=== PATIENT | male | born 2000 | race African-American/Black ===

== ENCOUNTER 2022-01-18 21:06 | Emergency (ER) | payer OTHER ==
[2022-01-18 21:30] VITALS: BP 126/77; PULSE 76; TEMP 98.2; BMI 19.2
== END 2022-01-18 23:18 | disposition home or self-care (01) ==
LOC: JER 21:06
PROC: 0HQCXZZ Repair Left Upper Arm Skin, External Approach (ICD-10-PCS; principal; 2022-01-18)
DX: S51.812A Laceration without foreign body of left forearm, initial encounter (principal); W26.8XXA Contact with other sharp object(s), not elsewhere classified, initial encounter
CPT/HCPCS: 99282-25

== ENCOUNTER 2022-01-27 13:51 | Emergency (ER) | payer OTHER ==
[2022-01-27 14:04] VITALS: BP 103/61; PULSE 85; TEMP 98.1; BMI 20.7
[2022-01-27] MEDS ORDERED: BACITRACIN 15 GM TUBE TOPICAL OINTMENT TP ONE (14:37)
== END 2022-01-27 14:39 | disposition home or self-care (01) ==
LOC: JERFT 13:51
DX: Z48.02 Encounter for removal of sutures (principal)
CPT/HCPCS: 99281-25

== ENCOUNTER 2023-04-23 16:01 | Emergency (ER) | payer OTHER ==
[2023-04-23 16:09] VITALS: BP 131/82; PULSE 56; RESP 18; TEMP 98; BMI 19.5
== END 2023-04-23 17:40 | disposition home or self-care (01) ==
LOC: JER 16:01
DX: R10.12 Left upper quadrant pain (principal); K59.00 Constipation, unspecified
CPT/HCPCS: 74018-TC-FY; 99283-25